=== PATIENT | female | born 1950 | race Caucasian/White ===

== ENCOUNTER → 2017-01-27 | Outpatient (CLI) | payer OTHER, BC ==
[~2017-01-27] MED LIST: ASCO10003 PO; ASPEC81 PO; B-COTAB18 PO; BETAPOW PO; BIOTPOW17 PO; CALC1TAB56 PO; COEN1CAP32 PO; CRAN1CAP15 PO; ESTR10TA PV; FLV1 PO; MAGN250T3 PO; MELA3TAB7 PO; MISCCAP52 PO; MISCCAP80 PO; OMEG10007 PO; VITA400C15 PO; [UNRECOGNIZED DRUG - OTHER] PO; [UNRECOGNIZED DRUG - OTHER] PO
== END | disposition home or self-care (01) ==
LOC: C.LABSPEC 16:26
PROVIDERS: ATTEND Internal Medicine
DX: Z00.00 Encounter for general adult medical examination without abnormal findings (principal); Z11.59 Encounter for screening for other viral diseases

== ENCOUNTER → 2017-06-16 | Outpatient (CLI) | payer OTHER, BC ==
[2017-06-16 16:20] LABS: FERRITIN 79.4 ng/ml (8.0-388.0); THYROID STIMULATING HORMONE 1.3 uIu/ml (0.300-4.500)
[2017-06-16 17:36] LABS: LYME DISEASE AB IGG NEG (NEG); LYME DISEASE AB IGM NEG (NEG)
== END | disposition home or self-care (01) ==
LOC: C.LAB 09:31
PROVIDERS: ATTEND Internal Medicine
DX: R53.83 Other fatigue (principal); Z86.2 Personal history of diseases of the blood and blood-forming organs and certain disorders involving the immune mechanism

== ENCOUNTER → 2018-01-05 | Outpatient (CLI) | payer OTHER, BC | END | disposition home or self-care (01) | LOC: C.MAMM 12:34 | PROVIDERS: ATTEND Internal Medicine | DX: Z85.3 Personal history of malignant neoplasm of breast (principal); Z78.0 Asymptomatic menopausal state; M85.88 Other specified disorders of bone density and structure, other site ==

== ENCOUNTER → 2018-07-13 | Outpatient (CLI) | payer OTHER, BC ==
--- NOTE | 2018-07-13 16:38 | DIAGNOSTIC IMAGING REPORT ---
CERVICAL SPINE 5 VIEWS CLINICAL HISTORY: neck pain. FINDINGS: AP, lateral, bilateral oblique, and odontoid views of the cervical spine are compared to study dated 07/14/2011. The skeletal structures are osteopenic. There is no radiographic evidence of fracture or malalignment. Vertebral body height is maintained at the cervical spine. Minimal anterolisthesis is seen at C4-C5. Alignment is otherwise maintained. There is straightening of the cervical lordosis with reversal centered at C4-C5. The spinal laminar line is maintained. The odontoid process and lateral masses appear intact as seen on the open-mouth views. The atlantodental articulation is maintained. The spinous processes appear intact. Small anterior osteophytes are seen in the mid to lower cervical region. There is advanced disc space narrowing with associated endplate sclerosis seen at C5-C6. Moderate disc space narrowing is seen at C4-C5 and C6-C7. A small posterior disc osteophyte complex at C5-C6 may contribute to acquired compromise of the central canal. Mild to moderate neural foraminal stenosis is suggested on the right at C5-C6 and C6-C7. No significant neural foraminal narrowing is suggested on the left on the oblique views. The prevertebral soft tissues are normal as imaged. The partially visualized apical lung parenchyma appears clear. Surgical clips project over the left upper chest. IMPRESSION: 1. No acute bony abnormality is seen involving the cervical spine. 2. Osteopenia and multilevel spondylosis as detailed above. This is greatest at C5-C6 and appears modestly progressed from the 2010 examination. Dictated: 07/13/2018 4:02 PM Transcribed: 07/13/2018 4:38 PM [email or web address] Electronically signed by: lAex Flores M.D. 07/13/2018 4:40 PM Dictated Date/Time: 07/13/2018 4:02 PM
== END | disposition home or self-care (01) ==
LOC: C.RAD1850 15:45
PROVIDERS: ATTEND Internal Medicine
DX: M43.6 Torticollis (principal); M85.88 Other specified disorders of bone density and structure, other site; M47.812 Spondylosis without myelopathy or radiculopathy, cervical region

== ENCOUNTER 2019-10-17 08:49 | Inpatient (IN) ==
--- NOTE | 2019-10-14 16:03 | History & Physical Report ---
Date of Service October 14, 2019 Assessment & Plan (1) Fracture of ankle, trimalleolar, right, closed: IMPRESSION: Right ankle trimalleolar fracture. PROCEDURE: Open reduction internal fixation of right ankle trimalleolar fracture. PLAN: The patient is scheduled to undergo this procedure at the [facility] as an inpatient with Dr. Lucio Davis on Thursday, October 17, 2019. Risks and complications of the procedure such as infection, bleeding, pain, scarring, nerve and blood vessel damage, weakness, wound problems, stiffness, incomplete relief of symptoms, tendon or ligament injury, heart attack, stroke, , infection, blood clots, embolism, malunion, nonunion, hardware failure and arthritis were explained to patient by Dr. Davis at her visit today. Informed consent to perform the procedure was obtained. The patient saw Dr. Mcgowan at the clinic upstairs today and will receive medical clearance from him. She is to return to his office after her visit with us today for a Tdap and for a CBC, complete metabolic panel, EKG and PT, INR studies. I provided the patient with orders for all of these tests as well as DME orders for a knee scooter and a wheelchair. She is to refrain from taking aspirin starting now as well as fish oil. I advised her that I will prescribe narcotic pain medication. We will have her increase her aspirin to twice daily for DVT prophylaxis along with the use of SADI stockings. She will be placed into a splint for 2 weeks and at her 2-week followup, I will transition her to a short leg cast. The patient was given a packet, advised to review it and to contact the hospital for her time of arrival on Thursday for her surgery. The patient verbalized understanding of all information provided during today's visit, thanked us for the care she has received and states if she has questions or concerns that should arise prior to her surgery date, she will contact the clinic. History of Present Illness Chief Complaint: Right ankle trimalleolar fracture Primary Care Provider: Anel Lind MD CHIEF COMPLAINT: Right ankle injury. HISTORY OF PRESENT ILLNESS: This 69-year-old female presents to the clinic for her new patient visit for an evaluation of a right ankle fracture that she sustained in [facility] this past Thursday. The patient states that she was init ially seen by an EMT in [facility], consequently took a flight from [facility] to [facility], and was seen at the emergency department in [place], [place] where she had a reduction of her displaced trimalleolar fracture of the right ankle. The patient states that the injury occurred when she slipped on a step. She states she has not been able to ambulate on the right lower extremity since the injury occurred. She has been elevating, icing and is currently in a posterior short leg splint. The patient states that the emergency department doctor in [place] advised her to follow up with an orthopedist at her soonest convenience because most likely this injury will require surgical fixation. PAST MEDICAL HISTORY: Breast cancer, colonic polyps, left-sided CVA, right lung nodule, recurrent urinary tract infections, right hemiparesis, actinic keratosis, history of blood clots. PAST SURGICAL HISTORY: Mammary prosthesis insertion, right mastopexy, lipectomy suction assisted mammary prosthesis insertion, shave biopsy of skin, fat grafting of the left breast, implantable port placement, latissimus dorsi flap with implant of the left breast, biopsy of the left chest wall, carpal tunnel release, fat grafting, removal of port, tattooing of the nipple. FAMILY HISTORY: Positive for breast cancer, hyperlipidemia, hypertension, prediabetes and skin cancer. ALLERGIES: THE PATIENT HAS MEDICATION ALLERGIES TO CODEINE, VICODIN, AND TAPE. CURRENT MEDICATIONS USED: Aspirin 81 mg tablet daily, B complex with B12 oral tablet daily, beta glucan on 500 mg tablet daily, biotin 10 mg tablet daily, glucosamine-chondroitin 1 tab twice daily, Citracal plus D3 tabs daily, CoQ10 400 mg tablet daily, cranberry 450 mg capsule daily, fish oil oral capsule 1000 mg daily, folic acid 1 mg oral tablet daily, magnesium oxide 250 mg capsule at bedtime, melatonin 20 mg tablet daily, probiotic intestinal 4 mg tablet daily, vitamin C 1000 mg daily, vitamin E 4000 international unit capsule daily. SOCIAL HISTORY: The patient consumes 1-2 glasses of wine per day. She is denies tobacco or illicit drug use. REVIEW OF SYSTEMS: A 14-point review of systems was performed and is unremarkable except for those things stated in the HPI as well as arthritis. DIAGNOSTIC IMAGING: Images obtained today show a nondisplaced distal fibular fracture reveals a posterior malleolar fracture. The patient husbands has x- rays done before the reduction that showed a right ankle fracture dislocation. IMPRESSION: Right ankle trimalleolar fracture. PROCEDURE: Open reduction internal fixation of right ankle trimalleolar fracture. PLAN: The patient is scheduled to undergo this procedure at the [facility] as an inpatient with Dr. Lucio Davis on Thursday, October 17, 2019. Risks and complications of the procedure such as infection, bleeding, pain, scarring, nerve and blood vessel damage, weakness, wound problems, stiffness, incomplete relief of symptoms, tendon or ligament injury, heart attack, stroke, , infection, blood clots, embolism, malunion, nonunion, hardware failure and arthritis were explained to patient by Dr. Davis at her visit today. Informed consent to perform the procedure was obtained. The patient saw Dr. Mcgowan at the clinic upstairs today and will receive medical clearance from him. She is to return to his office after her visit with us bertha leiva for a Tdap and for a CBC, complete metabolic panel, EKG and PT, INR studies. I provided the patient with orders for all of these tests as well as DME orders for a knee scooter and a wheelchair. She is to refrain from taking aspirin starting now as well as fish oil. I advised her that I will prescribe narcotic pain medication. We will have her increase her aspirin to twice daily for DVT prophylaxis along with the use of SADI stockings. She will be placed into a splint for 2 weeks and at her 2-week followup, I will transition her to a short leg cast. The patient was given a packet, advised to review it and to contact the hospital for her time of arrival on Thursday for her surgery. The patient verbalized understanding of all information provided during today's visit, thanked us for the care she has received and states if she has questions or concerns that should arise prior to her surgery date, she will contact the clinic. Allergies Allergy/AdvReac Type Severity Reaction Status Date / Time codeine Allergy Severe CAUSED Verified 04/21/19 09:21 PARALYSIS IN EXTREMETIES acetaminophen AdvReac Unknown SEVERE Verified 04/21/19 09:21 NAUSEA hydrocodone AdvReac Unknown SEVERE Verified 04/21/19 09:21 NAUSEA Past Med/Surg History Medical History Breast cancer (Chronic) Cervical pain (neck) (Chronic) History of CVA with residual deficit (Chronic) Lymph edema (Chronic) Surgical History (Updated 04/21/19 @ 11:54 by Jake Alatorre PA-C) History of mastectomy, total (Chronic) Social History Communication Ability: Effective Visual Impairment: No Limitations Hearing Ability: Normal Lead Cargo Mover Required: No Beliefs That Will Affect Care: None marital status: Current Living Situation: Spouse current occupational status: employed and 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 No open skin lesions or discharge. Eyes: Pupils are equal and reactive to light and accommodating. Extraocular movements are intact. Throat: Posterior pharynx is clear with absence of edema, erythema or exudate. Cardiovascular exam: The patient has a regular rate and rhythm with no murmurs or gallops appreciated. Lungs: Auscultation of lung headley reveals clear breath sounds throughout, no wheezing, rales or rhonchi. Abdomen is nonobese, nondistended, nontender with normoactive bowel sounds. Extremities: Right lower extremity is currently in a posterior short leg splint. The patient is able to slightly move her toes. She is able to depict light sensation to touch over the pads of her digits. She has tenderness to palpation over the anterior aspect of the lateral malleolus. She is able to reach terminal flexion and extension in her right knee. Neurologic exam: Cranial nerves 2-12 are intact. No motor or sensory deficit. Psychological/general exam: The patient is alert and oriented x3 with proper grooming and hygiene.
[~2019-10-17 08:49] MED LIST changes: -ASCO10003 PO; -ASPEC81 PO; -B-COTAB18 PO; -BETAPOW PO; -BIOTPOW17 PO; -CALC1TAB56 PO; +CEFAZOLIN 2000MG 2,000 MG/15 ML SYR IV SCH; -COEN1CAP32 PO; -CRAN1CAP15 PO; -ESTR10TA PV; -FLV1 PO; +LR 15ML/HR IV SCH; -MAGN250T3 PO; -MELA3TAB7 PO; -MISCCAP52 PO; -MISCCAP80 PO; -OMEG10007 PO; -VITA400C15 PO; -[UNRECOGNIZED DRUG - OTHER] PO; -[UNRECOGNIZED DRUG - OTHER] PO
[2019-10-17] MEDS ORDERED: DEXAMETHASONE SOD INJ 4 MG/ML VIAL ONE (10:15)
[2019-10-17] MEDS ORDERED: ONDANSETRON INJ 2 MG/ML 2 ML VIAL ONE (10:15)
[2019-10-17] MEDS ORDERED: PROPOFOL IV EMULSION 10 MG/ML 20 ML VIAL IV ONE (10:15)
[2019-10-17] MEDS ORDERED: fentaNYL citrate 100 MCG/2 ML VIAL ONE (10:15)
[2019-10-17] MEDS ORDERED: MIDAZOLAM HCL 1 MG/ML 2ML VIAL ONE (10:15)
[2019-10-17] MEDS ORDERED: LIDOCAINE HCL 2% 2 ML VIAL/AMP(20MG/ML) INFIL ONE (10:15)
--- NOTE | 2019-10-17 11:05 | History & Physical Bridge Note ---
Date of Service October 17, 2019 History & Physical Bridge Note I have examined the patient, reviewed the History & Physical and in the interval since the performance of the History & Physical I have noted the following changes of clinical significance: no changes noted
--- NOTE | 2019-10-17 11:10 | Anesthesiology Consultation ---
Date of Service October 17, 2019 Assessment & Plan Chart Review Chart Review: Acceptable Risk for Surgery and Patient NOT seen in Pre Admission Testing Consults Requested none ASA ASA2 Proposed Anesthesia Anesthesia Type: General Regional Regional Laterality: Right Site: Popliteal and Adductor Canal Risk / Benefits Reviewed With: PT / POA / Parent / Guardian, Accepts Plan and Informed Consent Obtained History Surgery Operation Date: 10/17/19 07:00 Proposed Procedures p Right Ankle Trimalleolar Fracture Open Reduction Internal Fixation - Lucio Davis MD Height/Weight Height: 5 ft 5 in Weight: 62.596 kg Allergies Allergy/AdvReac Type Severity Reaction Status Date / Time codeine Allergy Severe CAUSED Verified 10/17/19 09:23 PARALYSIS IN EXTREMETIES adhesive tape AdvReac Mild Rash Verified 10/17/19 09:23 hydrocodone AdvReac Unknown SEVERE Verified 10/17/19 09:23 NAUSEA Medications Home Medications Medication Instructions Recorded Confirmed Last Taken B.breve-L.acid-L.rham-S.thermo 1 tab PO DAILY 10/17/19 10/17/19 10/16/19 08:00 [Probiotic] ascorbic acid (vitamin C) [Vitamin 1,000 mg PO DAILY 10/17/19 10/17/19 10/16/19 08:00 C] aspirin [Aspirin Low Dose] 81 mg PO DAILY 10/17/19 10/17/19 10/14/19 08:00 biotin 10 mg PO DAILY 10/17/19 10/17/19 10/16/19 08:00 calcium phosphate-vitamin D3 3 tab PO BID 10/17/19 10/17/19 10/16/19 20:00 [Citracal + D3 (calcium phos)] coenzyme Q10 [CoQ-10] 400 mg PO DAILY 10/17/19 10/17/19 10/16/19 08:00 cranberry 450 mg PO DAILY 10/17/19 10/17/19 10/16/19 08:00 folic acid 1 mg PO DAILY 10/17/19 10/17/19 10/16/19 08:00 glucos sul 2DIm-fgo-jwbkw-C-Mn 1 cap PO BID 10/17/19 10/17/19 10/16/19 20:00 [Glucosamine Chondroitin] magnesium oxide 250 mg PO HS 10/17/19 10/17/19 10/16/19 20:00 melatonin 20 mg PO HS 10/17/19 10/17/19 10/16/19 20:00 naproxen sodium [Aleve] 220 mg PO Q12H PRN 10/17/19 10/17/19 10/16/19 21:00 omega 2-kzx-xkm-fish oil [Fish Oil] 1 cap PO DAILY 10/17/19 10/17/19 10/14/19 08:00 vitamin B complex 1 tab PO DAILY 10/17/19 10/17/19 10/16/19 08:00 vitamin E 4,000 unit PO DAILY 10/17/19 10/17/19 10/16/19 08:00 NPO Date Last Intake of Fluids: 10/16/19 Time Last Intake of Fluids: 22:00 Date Last Intake of Solids: 10/16/19 Time Last Intake of Solids: 21:00 Past Medical History Medical History Breast cancer (Chronic) Cervical pain (neck) (Chronic) History of CVA with residual deficit (Chronic) Lymph edema (Chronic) Exercise / Class Metabolic Activity II 4-5 Yardwork/Stairs/Walk up hill Past Surgical History Surgical History History of carpal tunnel surgery of left wrist (Acute) History of mastectomy, total (Chronic) Past Anesthesia History No Hx of Anesthesia Complications and No Family Hx of Anesthesia Complications History of PONV No Hx of PONV and No Hx of Motion Sickness Social History Smoking Status: Never smoker Do You Dip or Chew Tobacco: No Hx Alcohol Use: Yes Alcohol type: wine alcohol intake frequency: 0-2 drinks per day Hx Substance Use: No Physical Exam Vital Signs Last Vital Signs Temp 36.7 C 10/17/19 09:38 Pulse 70 10/17/19 09:38 Resp 20 10/17/19 09:38 BP 138/69 10/17/19 09:38 Pulse Ox 96 10/17/19 09:38 Constitutional not obese ENMT Mouth: no dentition abnormality Thyromental Distance: < 3.5 Finger Breadths Mallampati Class: II Neck normal visual inspection and trachea midline; neck extension not limited Respiratory normal respiratory effort Auscultation: lungs clear to auscultation bilaterally Cardiovascular Rate/Rhythm: regular rate and regular rhythm Heart Sounds: no murmur Vessels: no carotid bruit Musculoskeletal Spine: normal cervical ROM Neurologic moves all extremities (right side weakness ) Motor/Sensory: no sensory deficit Psychiatric Orientation: alert and oriented x 3 Testing Laboratory Results WBC: 5.8 Hc.9 Hct: 37.2 PLATELETS: 200 SODIUM: 144 POTASSIUM: 3.9 CHLORIDE: 108 CO2: 30 BUN: 19 CREATININE: 0.75 GLUCOSE:122 PT: 11.9 PTT: INR:0.9 UA: TYPE AND SCREEN: Electrocardiogram Date: 10/14/19 Findings: + NSR @ (at 69)
[2019-10-17] MEDS ORDERED: EPINEPHrine INJ 1 MG/ML AMP ONE (11:31)
[2019-10-17] MEDS ORDERED: BUPIVACAINE 0.5 % 5 MG/1 ML MPF 30ML VIAL ONE (11:31)
[2019-10-17] MEDS ORDERED: ROPIVACAINE 0.5% 5 MG/ML 30 ML VIAL ONE (12:04)
--- NOTE | 2019-10-17 14:22 | Post Operative Brief Note ---
Immediate Post Op Note v1 Date of Surgery October 17, 2019 Pre & Post Diagnosis Operation Date: 10/17/19 07:00 Pre-Op Diagnosis: Right Ankle Trimalleolar Fracture Post-Op Diagnosis: Right Ankle Trimalleolar Fracture I identified the patient and participated in the time-out.: Yes Procedure Operation Date: 10/17/19 07:00 Actual Procedures p Right Ankle Trimalleolar Fracture Open Reduction Internal Fixation(Right) - Lucio Davis MD Surgeon Lucio Davis MD Time Study Clerk DARLENE Winn PA-C Estimated Blood Loss 50 Findings Consistent with Post-Op Diagnosis Fluids 1200 cc Anesthesia Type General Regional Complications none Disposition Accompanied Patient To Recovery: No Disposition: Recovery Room
[2019-10-17] MEDS ORDERED: NALOXONE HCL 0.4 MG/1 ML VIAL/CARP IV PRN ×2 (14:28→14:46)
--- NOTE | 2019-10-17 14:28 | Operative Report ---
Post Operative Report Pre & Post Diagnosis Operation Date: 10/17/19 07:00 Pre-Op Diagnosis: Right Ankle Trimalleolar Fracture Post-Op Diagnosis: Right Ankle Trimalleolar Fracture I identified the patient and participated in the time-out.: Yes Procedure Operation Date: 10/17/19 07:00 Actual Procedures p Right Ankle Trimalleolar Fracture Open Reduction Internal Fixation(Right) - Lucio Davis MD Surgeon Lucio Davis MD Arterial Embalmer DARLENE Winn PA-C Estimated Blood Loss 50 Findings Consistent with Post-Op Diagnosis Specimens none Complications none Disposition Accompanied Patient To Recovery: Yes Disposition: Recovery Room Description of Procedure I was present during the entire case assisting with wound closure and dressing application. Please see Dr. Davis procedure note for specifics of the case. I attest to the content of the Intraoperative Record and any orders documented therein. Any exceptions are noted below.
[2019-10-17] MEDS ORDERED: TRAMADOL HCL 50 MG TABLET PO PRN (14:34)
[2019-10-17] MEDS ORDERED: ONDANSETRON INJ 2 MG/ML 2 ML VIAL IV PRN ×2 (14:34→14:46)
[2019-10-17] MEDS ORDERED: METOCLOPRAMIDE HCL INJ 5 MG/ML 2 ML VIAL IV PRN (14:34)
[2019-10-17] MEDS ORDERED: DiphenhydrAMINE HCL 50 MG/ML VIAL IV PRN (14:36)
[2019-10-17] MEDS ORDERED: ATROPINE SULFATE 0.1 MG/ML 10ML SYR IV PRN (14:46)
[2019-10-17] MEDS ORDERED: FLUMAZENIL 0.1 MG/1 ML 10 ML VIAL IV PRN (14:46)
[2019-10-17] MEDS ORDERED: LABETALOL HCL IV 5 MG/ML 20ML IV PRN (14:46)
[2019-10-17] MEDS ORDERED: PROMETHAZINE HCL 12.5 MG in SODIUM CHLORIDE 0.9% 50 ML IV PRN (14:46)
[2019-10-17] MEDS ORDERED: ePHEDrine sulfate 50 MG/ML AMP IV PRN (14:46)
[2019-10-17] MEDS ORDERED: fentaNYL citrate 100 MCG/2 ML VIAL IV PRN (14:46)
--- NOTE | 2019-10-17 14:56 | Fluoroscopy Report ---
FL ankle RT min 3V RTN CLINICAL HISTORY: RT TRIMALLEOLAR FX COMPARISON STUDY: 10/14/2019 FLUOROSCOPY TIME: 28 seconds. NUMBER OF FLUOROSCOPIC IMAGES: 4 FINDINGS: A lateral metallic plate with 6 screws fixate a distal fibular fracture. 2 cannulated screw s fixate a fracture the posterior malleolus of the distal tibia. The ankle mortise appears intact. IMPRESSION: Internally fixated fractures of the posterior malleolus and distal fibula. Electronically signed by: Anselmo Warren M.D. 10/17/2019 2:54 PM
--- NOTE | 2019-10-17 15:04 | XRay Report ---
XR ankle RT 2V CLINICAL HISTORY: post op ankle fracture COMPARISON: Right ankle radiographs October 14, 2019. FINDINGS: Distal right fibular plate and screws fixate the right fibular fracture. Alignment appears anatomic. Two screws within the posterior distal right tibia are also noted. The hardware is intact. Skin jt are noted. There is an overlying cast. There are no unexpected radiopaque foreign mela s. IMPRESSION: Expected findings following right ankle internal fixation. Electronically signed by: Murtaza Pichardo M.D. 10/17/2019 3:03 PM
--- NOTE | 2019-10-17 15:04 | Anesthesiology Progress Note ---
Date of Service October 17, 2019 Anesthesia Post Procedure Vital Signs Vital Signs: Temp Pulse Pulse Resp BP Pulse Ox 10/17/19 15:00 36.4 C L 72 14 126/62 100 10/17/19 14:50 69 14 127/68 100 10/17/19 14:40 75 14 128/69 100 10/17/19 14:30 36.8 C 88 14 129/71 99 10/17/19 09:38 36.7 C 70 20 138/69 96 10/17/19 09:29 36.7 C 70 20 138/69 96 Pain Intensity Right Ankle: Pain Intensity: 4 Transfer of Care Handoff Completed per policy Notes Mental Status: alert / awake / arousable Patient Amnestic to Procedure: Yes Nausea / Vomiting: adequately controlled Pain: adequately controlled Airway Patency, RR, SpO2: stable & adequate BP & HR: stable & adequate Hydration State: stable & adequate Anesthetic Complications: no major complications apparent
[2019-10-17] MEDS ORDERED: NAPROXEN 250 MG TAB PO PRN (15:53)
[2019-10-17] MEDS ORDERED: SODIUM CHLORIDE 0.9% 1000ML 1,000 ML IV SCH (16:00)
--- NOTE | 2019-10-17 17:08 | Operative Report ---
DATE OF OPERATION: 10/17/2019 PREOPERATIVE DIAGNOSIS: Right ankle trimalleolar ankle fracture. POSTOPERATIVE DIAGNOSIS: Right ankle trimalleolar ankle fracture. OPERATIONS PERFORMED: Open reduction internal fixation trimalleolar ankle fracture. SURGEON: Lucio Davis MD. MANUFACTURING TEAM MEMBER: Prachi Winn PA-C. ESTIMATED BLOOD LOSS: 50 mL. IV FLUIDS: 1200 mL crystalloid. SPECIMENS: None. COMPLICATIONS: None. IMPLANTS: 1. Synthes 6-hole 1/3rd tubular plate with five 3.5 mm cortical screws and one 3.5 mm locking screw. 2. Two 4-0 cannulated screws, both measuring 38 mm and one with a washer. INDICATIONS: The patient is a 69-year-old female who sustained an injury to her ankle while in [facility] on Thursday last week, 6 days ago. She flew home to [facility] where she was seen at an Emergency Room in [place]. She was diagnosed with a trimalleolar posterior ankle fracture dislocation. She was close reduced in [place] and is now home. She presented to my clinic on Thursday last week. X-rays demonstrated preservation of the reduction. However, this is an unstable pattern injury and there was displacement of the posterior malleolar fragment. Therefore, I recommended open reduction internal fixation in order to stabilize her joint and give her the best possible long-term outcome. After reviewing all the risks and benefits of surgery, alternatives to surgery and expected outcome, she elected to proceed. All questions were answered. Informed consent was signed. OPERATIVE FINDINGS: With the patient in the prone position, a posterior approach to the distal tibia and the posterior aspect of the fibula was made. The posterior malleolus fracture was reduced and stabilized with 2 cannulated Synthes 4.0 diameter screws. The fibula was stabilized with a 1/3rd tubular posterolateral antiglide plate. The medial malleolus fracture was closed reduced and therefore no fixation was required. DESCRIPTION OF THE OPERATION: The patient was identified in the preoperative holding area where her surgical site was marked. Her splint was removed and she had skin wrinkles. She was then given a popliteal and saphenous nerve blocks by Anesthesia and brought back to main Operating Room where general anesthesia was administered on the hospital bed. She was then carefully rolled into the prone position. All bony prominences were padded. Perioperative antibiotics were administered. She was prepped and draped in normal sterile fashion. Prior to incision, a multidisciplinary timeout was called. All in the room were in agreement. We began by exsanguinating the limb with an Esmarch bandage. Tourniquet was inflated to 250 mmHg. Total tourniquet time for the case was 79 minutes. A posterolateral approach to the ankle was made for a distance of approximately 10 cm and was centered fci between the Achilles and the posterior aspect of the fibula. We dissected down through subcutaneous tissues. The lesser saphenous vein was identified and small branches were coagulated with cautery. We then developed a full thickness fascial flaps. The fascia was then incised and the interval between the peroneal musculature and the FHL was developed. We followed this along the medial border of the fibula down on the posterior aspect of the tibia proximally and then continued this distally. Branches of the peroneal artery were coagulated using Bovie. The posterior malleolar fracture was then identified. The fracture site was opened up with a freer and the joint was lavaged using a bulb saline. We then were able to reduce the fracture using a ball spike under direct visualization. Two K wires were placed to hold the fragment in position. Fluoroscopy was brought in. Minor adjustments were made to our K wires and then a 4.0 long threaded cancellous screw was placed with a washer. A second screw was then placed. We did switch out first screw for one that was little bit shorter by 4 mm to optimize the screw length. Excellent fixation was obtained. Next, the interval between the peroneals and the posterior aspect of the fibula was identified and the peroneals were retracted medially to expose the posterior aspect of the fibula. The fracture site was identified and fracture hematoma was removed. The fracture was then reduced using a pointed tenaculum clamp. A 1/3rd tubular plate was then slid underneath the clamp and was secured with screws proximally and distally. Fluoroscopy was brought in to confirm the proper position of the plate as well as our reduction, which we were happy with. We then placed 4 more cortical screws within the plate which acted like a buttress as each of the screws were tightened down. In the most distal hole, I elected to place a locking screw since a fracture was quite distal to provide additional fixation of the distal fragment. The head of the screw also sits more within the plate so as to minimize irritation of the peroneal tendons. At this point, the fluoroscopy was brought back in and our final fluoroscopic images were obtained. This demonstrated that her medial malleolus fracture fragment continued to stay anatomically reduced. Therefore, no fixation was deemed necessary. We will plan on 6 weeks of postoperative casting to allow this fragment to heal in its anatomically located position. The wound was then irrigated with copious amounts of normal saline. The fascia was closed with 2-0 Vicryl sutures in running fashion. The deep dermis was closed with a running 3-0 Vicryl. The skin was closed with jt. Xeroform was placed over the wound followed by a well-padded posterior and U-slab plaster splint. Once the plaster was set, the patient was carefully rolled back into the supine position. She was extubated and transferred to the Recovery Room in stable condition. POSTOPERATIVE COURSE: The patient will be admitted overnight for pain control and monitoring. She will work with physical therapy tomorrow, nonweightbearing on the right lower extremity. She will be on Xarelto for DVT prophylaxis. I attest to the content of the Intraoperative Record and any orders documented therein. Any exception s are noted below.
[2019-10-17] MEDS: ACETAMINOPHEN 500 MG TAB PO PRN (20:14)
[2019-10-17] MEDS: CALCIUM 600MG + VIT D 400 IU TAB PO SCH (20:15)
[2019-10-17] MEDS ORDERED: NON-FORMULARY MEDICATION (Glucos Sul 2kcl-Msm-Chond-C-Mn [Glucosamine Chondroitin] 1 CAP) PO SCH (21:00)
[2019-10-17] MEDS ORDERED: NON-FORMULARY MEDICATION (Melatonin 20 MG) PO SCH (21:00)
[2019-10-17] MEDS ORDERED: MAGNESIUM OXIDE 400 MG TAB PO SCH (21:00)
--- NOTE | 2019-10-17 22:17 | Ultrasound Report ---
ULTRASOUND RIGHT LOWER EXTREMITY VENOUS CLINICAL HISTORY: Right leg pain and swelling. Ankle fracture. COMPARISON STUDY: Bilateral lower extremity venous ultrasound dated 11/08/2012. TECHNIQUE: Real-time, grayscale, and color Doppler sonography of the deep veins of the right lower ex tremity was performed from the inguinal crease to the calf. Compression and augmentation were utilize d. FINDINGS: There is no sonographic evidence of above knee deep venous thrombosis identified in the rig ht lower extremity. The common femoral, superficial femoral, and popliteal veins are patent and nick lly compressible. The greater saphenous vein and the profunda femoris vein at the junction with the c ommon femoral vein are clear. The calf vessels were not visualized due to a splint. IMPRESSION: There is no sonographic evidence of above knee deep venous thrombosis identified in the r ight lower extremity. Electronically signed by: Alex Flores M.D. 10/17/2019 10:16 PM
--- NOTE | 2019-10-18 08:13 | Anesthesiology Progress Note ---
Date of Service October 18, 2019 Anesthesia Post Procedure Vital Signs Vital Signs: Temp Pulse Pulse Pulse Pulse Resp BP 10/18/19 07:00 36.5 C 73 16 129/68 10/18/19 03:55 36.5 C 77 16 131/67 10/17/19 23:50 36.6 C 76 16 111/62 10/17/19 19:53 36.6 C 72 17 126/78 10/17/19 17:50 36.4 C L 77 17 126/69 10/17/19 16:54 36.4 C L 72 18 130/72 10/17/19 16:24 36.5 C 72 17 121/70 10/17/19 15:50 36.5 C 18 128/74 10/17/19 15:30 36.6 C 67 14 125/63 10/17/19 15:20 36.6 C 67 14 127/64 10/17/19 15:10 36.6 C 70 14 126/63 10/17/19 15:00 36.6 C 72 14 126/62 10/17/19 14:50 69 14 127/68 10/17/19 14:40 75 14 128/69 10/17/19 14:30 36.8 C 88 14 129/71 10/17/19 09:38 36.7 C 70 20 138/69 10/17/19 09:29 36.7 C 70 20 138/69 Pulse Ox 10/18/19 07:00 98 10/18/19 03:55 98 10/17/19 23:50 95 10/17/19 19:53 94 10/17/19 17:50 98 10/17/19 16:54 98 10/17/19 16:24 96 10/17/19 15:50 96 10/17/19 15:30 97 10/17/19 15:20 97 10/17/19 15:10 97 10/17/19 15:00 100 10/17/19 14:50 100 10/17/19 14:40 100 10/17/19 14:30 99 10/17/19 09:38 96 10/17/19 09:29 96 Pain Intensity Right Ankle: Pain Intensity: 4 Notes Mental Status: alert / awake / arousable and participated in evaluation Patient Amnestic to Procedure: Yes Nausea / Vomiting: adequately controlled Pain: adequately controlled Airway Patency, RR, SpO2: stable & adequate BP & HR: stable & adequate Hydration State: stable & adequate Anesthetic Complications: no major complications apparent and Pt Satisfied with anesthetic care
[2019-10-18] MEDS: CALCIUM 600MG + VIT D 400 IU TAB PO SCH (08:41)
[2019-10-18] MEDS ORDERED: VITAMIN B COMPLEX TAB PO SCH (09:00)
[2019-10-18] MEDS ORDERED: RIVAROXABAN 10 MG TABLET PO SCH (09:00)
[2019-10-18] MEDS ORDERED: FOLIC ACID 1 MG TAB PO SCH (09:00)
[2019-10-18] MEDS ORDERED: NON-FORMULARY MEDICATION (Biotin 10 MG) PO SCH (09:00)
[2019-10-18] MEDS ORDERED: NON-FORMULARY MEDICATION (Cranberry Fruit [Cranberry] 450 MG) PO SCH (09:00)
[2019-10-18] MEDS ORDERED: LACTOBACILLUS ACIDOPHILUS (FLORANEX) TAB PO SCH (09:00)
[2019-10-18] MEDS ORDERED: OMEGA-3 (PURIFIED FISH OIL) 1 GM CAP PO SCH (09:00)
[2019-10-18] MEDS ORDERED: RIVAROXABAN 20 MG TAB PO SCH (09:00)
[2019-10-18] MEDS ORDERED: ASCORBIC ACID 500 MG TAB PO SCH (09:00)
[2019-10-18] MEDS ORDERED: COENZYME Q10 400 MG PO SCH (09:00)
[2019-10-18] MEDS ORDERED: TOCOPHERYL, DL-ALPHA 400 UNITS CAP PO SCH (09:00)
[2019-10-18 09:14] LABS: BUN Creatinine Ratio 19.8 (10-20); Calcium 9.8 mg/dl (8.5-10.1); Creatinine Clr Calc Pharmacy 56.1 ml/min; Est GFR (African American) 81.6; Est GFR (Non-African American) 70.4; Potassium 4.3 mmol/L (3.5-5.1)
[2019-10-18 09:25] LABS: Mean Corpuscular Hgb Conc 32.5 g/dL (32-36)
[2019-10-18 09:28] LABS: Hematocrit (blood only) 35.4 % (37-47); Hemoglobin 11.5 g/dL (12.0-16.0); Mean Corpuscular Hemoglobin 31.5 pg (25-34); Platelet Count 157 K/uL (130-400); RDW Coefficient of Variation 13.7 % (11.5-14.5); RDW Standard Deviation 48.3 fL (36.4-46.3); Red Blood Count 3.65 M/uL (4.2-5.4); White Blood Count 6.72 K/uL (4.8-10.8)
[2019-10-18 09:29] LABS: Basophils # (auto) 0.01 K/uL (0-0.2); Basophils % (auto) 0.1 %; Eosinophils # (auto) 0.04 K/uL (0-0.5); Eosinophils % (auto) 0.6 %; Lymphocytes # (auto) 1.44 K/uL (1.2-3.4); Lymphocytes % (auto) 21.4 %; Monocytes # (auto) 0.58 K/uL (0.11-0.59); Monocytes % (auto) 8.6 %; Neutrophils # (auto) 4.65 K/uL (1.4-6.5); Neutrophils % (auto) 69.3 %; Platelet Estimate Normal (Normal)
--- NOTE | 2019-10-18 09:56 | Orthopedic Progress Note ---
Date of Service October 18, 2019 Assessment & Plan (1) Status post ORIF of fracture of ankle: Plan on discharge with home health Eval. Keep splint in place Non weight bearing on Right lower extremity with ambulatory assistance with walker/knee scooter/wheelchair Ice with EZ wrap DVT prophy with Xarelto and TEDs PO pain control with Extra Strength Tylenol and Tramadol F/u with Dr. Davis as scheduled on 10/28/19 With questions call Subjective This 69 yo F is day 1 s/p Right ankle trimalleolar fracture ORIF. She is doing very well. Her block has wore off but pain is well controlled with PO Tramadol. She did fairly well with PT this AM but was recommended a home health eval by case management and PT. At this time she denies CP, SOB, nausea, vomiting, fever, chills, sweats, lethargy or Numbness/tingling in her right foot/toes. Review of Systems Review of Systems: All systems reviewed & are unremarkable except as noted in HPI & below Physical Exam Physical Exam: Right LE: Toes mobile and able to depict light sensation to touch. Splint in place. Knee ROM from 0-130. NV intact Results & Data Vital Signs (Past 12 Hours) Vital Signs Temp Pulse Resp BP Pulse Ox 10/18/19 07:00 36.5 C 73 16 129/68 98 10/18/19 03:55 36.5 C 77 16 131/67 98 10/17/19 23:50 36.6 C 76 16 111/62 95 Laboratory Results 10/18/19 10/18/19 10/18/19 Range/Units 08:07 08:07 08:07 WBC 6.72 (4.8-10.8) K/uL RBC 3.65 L (4.2-5.4) M/uL Hgb 11.5 L (12.0-16.0) g/dL Hct 35.4 L (37-47) % MCV 97.0 (80-100) fL MCH 31.5 (25-34) pg MCHC 32.5 (32-36) g/dL RDW Std Deviation 48.3 H (36.4-46.3) fL RDW Coeff of Jolie 13.7 (11.5-14.5) % Plt Count 157 (130-400) K/uL MPV 11.0 H (7.4-10.4) fL Immature Gran % (Auto) 0.0 % Neut % (Auto) 69.3 % Lymph % (Auto) 21.4 % Cass % (Auto) 8.6 % Eos % (Auto) 0.6 % Baso % (Auto) 0.1 % Immature Gran # (Auto) 0.00 (0.00-0.02) K/uL Neut # (Auto) 4.65 (1.4-6.5) K/uL Lymph # (Auto) 1.44 (1.2-3.4) K/uL Cass # (Auto) 0.58 (0.11-0.59) K/uL Eos # (Auto) 0.04 (0-0.5) K/uL Baso # (Auto) 0.01 (0-0.2) K/uL Platelet Estimate Normal (Normal) Sodium 139 (136-145) mmol/L Potassium 4.3 (3.5-5.1) mmol/L Chloride 106 (98-107) mmol/L Carbon Dioxide 28 (21-32) mmol/L Anion Gap 5.0 (3-11) BUN 17 (7-18) mg/dl Creatinine 0.84 (0.6-1.2) mg/dl Est Cr Clr Drug Dosing 56.1 ml/min Est GFR ( Amer) 81.6 Est GFR (Non-Af Amer) 70.4 BUN/Creatinine Ratio 19.8 (10-20) Glucose 93 (70-99) mg/dl Calcium 9.8 (8.5-10.1) mg/dl Specimen Hemolysis Hepatitis C Ab Screen Pending
--- NOTE | 2019-10-18 09:57 | Discharge Summary ---
Date of Service October 18, 2019 Admission HPI Per Admitting Provider CHIEF COMPLAINT: Right ankle injury. HISTORY OF PRESENT ILLNESS: This 69-year-old female presents to the clinic for her new patient visit for an evaluation of a right ankle fracture that she sustained in [facility] this past Thursday. The patient states that she was initially seen by an EMT in [facility], consequently took a flight from [facility] to [facility], and was seen at the emergency department in [place], [place] where she had a reduction of her displaced trimalleolar fracture of the right ankle. The patient states that the injury occurred when she slipped on a step. She states she has not been able to ambulate on the right lower extremity since the injury occurred. She has been elevating, icing and is currently in a posterior short leg splint. The patient states that the emergency department d john in [place] advised her to follow up with an orthopedist at her soonest convenience because most likely this injury will require surgical fixation. PAST MEDICAL HISTORY: Breast cancer, colonic polyps, left-sided CVA, right lung nodule, recurrent urinary tract infections, right hemiparesis, actinic keratosis, history of blood clots. PAST SURGICAL HISTORY: Mammary prosthesis insertion, right mastopexy, lipectomy suction assisted mammary prosthesis insertion, shave biopsy of skin, fat grafting of the left breast, implantable port placement, latissimus dorsi flap with implant of the left breast, biopsy of the left chest wall, carpal tunnel release, fat grafting, removal of port, tattooing of the nipple. FAMILY HISTORY: Positive for breast cancer, hyperlipidemia, hypertension, prediabetes and skin cancer. ALLERGIES: THE PATIENT HAS MEDICATION ALLERGIES TO CODEINE, VICODIN, AND TAPE. CURRENT MEDICATIONS USED: Aspirin 81 mg tablet daily, B complex with B12 oral tablet daily, beta glucan on 500 mg tablet daily, biotin 10 mg tablet daily, glucosamine-chondroitin 1 tab twice daily, Citracal plus D3 tabs daily, CoQ10 400 mg tablet daily, cranberry 450 mg capsule daily, fish oil oral capsule 1000 mg daily, folic acid 1 mg oral tablet daily, magnesium oxide 250 mg capsule at bedtime, melatonin 20 mg tablet daily, probiotic intestinal 4 mg tablet daily, vitamin C 1000 mg daily, vitamin E 4000 international unit capsule daily. SOCIAL HISTORY: The patient consumes 1-2 glasses of wine per day. She is denies tobacco or illicit drug use. REVIEW OF SYSTEMS: A 14-point review of systems was performed and is unremarkable except for those things stated in the HPI as well as arthritis. Admission Exam Per Admitting Provider PHYSICAL EXAMINATION: Skin: The patient's skin is normal in appearance. No open skin lesions or discharge. Eyes: Pupils are equal and reactive to light and accommodating. Extraocular movements are intact. Throat: Posterior pharynx is clear with absence of edema, erythema or exudate. Cardiovascular exam: The patient has a regular rate and rhythm with no murmurs or gallops appreciated. Lungs: Auscultation of lung headley reveals clear breath sounds throughout, no wheezing, rales or rhonchi. Abdomen is nonobese, nondistended, nontender with normoactive bowel sounds. Extremities: Right lower extremity is currently in a posterior short leg splint. The patient is able to slightly move her toes. She is able to depict light sensation to touch over the pads of her digits. She has tenderness to palpation over the anterior aspect of the lateral malleolus. She is able to reach terminal flexion and extension in her right knee. Neurologic exam: Cranial nerves 2-12 are intact. No motor or sensory deficit. Psychological/general exam: The patient is alert and oriented x3 with proper grooming and hygiene. Principal Diagnosis Right ankle Trimalleolar Fracture Discharge Exam Right LE: Toes mobile and able to depict light sensation to touch. Splint in place. Knee ROM from 0-130. NV intact Discharge Data Allergies Allergy/AdvReac Type Severity Reaction Status Date / Time codeine Allergy Severe CAUSED Verified 10/17/19 09:23 PARALYSIS IN EXTREMETIES hydrocodone AdvReac Intermediate SEVERE Verified 10/17/19 11:18 NAUSEA adhesive tape AdvReac Mild Rash Verified 10/17/19 09:23 Consultations 10/17/19 14:29 Consult Case Management - Discharge Planning Routine Procedures Performed Operation Date: 10/17/19 07:00 Actual Procedures p Right Ankle Trimalleolar Fracture Open Reduction Internal Fixation(Right) - Lucio Davis MD Ordered Studies 10/17/19 11:10 US - OR guided needle placemen Stat 10/17/19 11:44 FL ankle RT min 3V RTN Routine FL fluoroscopy <1hr Routine 10/17/19 14:41 US venous doppler LE RT Routine Hospital Course (1) Status post ORIF of fracture of ankle: Patient did very well overnight. Block has wore off. Pain well controlled with PO meds. US negative for DVT. Discharge home on Xarelto for DVT prophylaxis and Tramadol for pain control. Did OK with PT but was recommended home health eval by PT and case management. purchased wheel chair and I wrote an Rx for a standard walker after speaking with PT provider. Plan on discharge with home health Eval. Keep splint in place Non weight bearing on Right lower extremity with ambulatory assistance with walker/knee scooter/wheelchair Ice with EZ wrap DVT prophy with Xarelto and TEDs PO pain control with Extra Strength Tylenol and Tramadol F/u with Dr. Davis as scheduled on 10/28/19 With questions call Total Time Total Time Spent Total Time Spent (In Minutes): 20 mins Total Time Includes: Examination of the Patient, Discharge Planning, Medication Reconciliation and Communication With Other Providers Discharge Plan Discharge Items Patient Disposition: Home - Home Health Services Reason For Visit: Right Ankle Trimalleolar Fracture Discharge Diagnosis: Right ankle trimalleolar fracture Activity: As commented below Lifting: None Bathing: Keep incision dry Bathing Comment: May shower tomorrow Sexual Activity: Wait until after follow-up appointment Exercise/Sports: Wait until after follow-up appointment Driving/Machine Use: No driving until cleared by dairy nutrition specialist Weightbearing: Right non-weightbearing Weightbearing Comment: with aide of walker/ knee scooter/ wheel chair Non-emergency contact: Primary Care Provider Call non-emergency contact if: you have any medication questions, your pain is not controlled, your temperature is above 101.5, your wound has increased drainage and your wound pain has increased Follow-up/Referrals: Anel Lind MD [Primary Care Provider] - Diet: Regular Addtl Attending Provider Instructions: Post-operative Instructions Dear Patient and Family/Friends, Before you are discharged from the hospital, it is important to know what to expect when you get home after surgery. To that end, we have created this sheet of discharge instructions which covers many commonly asked questions. Make sure you go through this sheet in its entirety with your nurse before you are discharged. Please note that we will go over the specifics of your surgery and recovery when you return for your first post-operative visit. Sincerely, Dr. Davis Medications 1. Xarelto 10 mg: take 1 tab daily for 21 days. A prescription will be sent to your pharmacy for this medication. While on Xarelto do not take you daily Aspirin. 2. Tramadol 50 mg: take 1-2 tabs every 4-6 hrs as needed for pain. A prescription will be sent to your pharmacy for 30 tablets. 3. Extra Strength Tylenol 500mg: take 2 tabs every 6 hrs as needed for pain. Please purchase. Pain Expect to be in a fair amount of pain after surgery. Remember, our goal is not to eliminate your pain, but to make it tolerable. It is a good idea to stay ahead of your pain by taking the medications you were prescribed once you get home. Typically, the pain starts improving 3-7 days after surgery. You should start weaning off the narcotic pain medication (oxycodone, hydrocodone, hydromorphone, morphine) as soon as your pain improves. Please call our office if your pain is not adequately controlled. Ice Ice your operative site at least 5 times a day for 15-30 minutes at a time. Make sure you have a thin cloth between the ice or cooling unit and your skin to prevent dee bite. This is especially important if you received a nerve block. Continue icing your operative site for the first 5-7 days after surgery, then as needed. Diet/Nausea/Vomiting Start by drinking clear liquids and eating crackers. If you can tolerate this, then you may resume your normal diet. If you feel nauseated or vomit, take Zofran/ondansetron (if prescribed). Please call our office if you have intractable nausea or vomiting, or, if after hours, you may go to the Emergency Room for help. Constipation Constipation is a common side effect of narcotic pain medication. If you have not had a bowel movement within 2 days after surgery, we recommend purchasing an over the counter laxative such as Milk of Magnesia, Dulcolax, or Miralax from a local pharmacy, and taking it as instructed. Call our clinic if any questions. Weight bearing and Range of Motion. Do not bear any weight through your operative extremity immediately after surgery. If you had upper extremity surgery, do not lift anything with that arm. If you are in a knee brace, keep it locked in place until your follow-up. We will discuss your weight bearing, range of motion, and lifting restrictions in detail at your first post-operative appointment. Continuous Passive Motion (CPM) Machine If you were prescribed a CPM machine, it will start after your first post- operative appointment, at which time we will give you instructions on the range of motion settings and duration of treatment Physical therapy You will be given a prescription for physical therapy or occupational therapy at your first post-operative appointment. Typically, patients start therapy within 1 week of surgery Wound care and showering We will inspect your wound at your first post-operative visit, and may do a dressing change at that time. Most patients will be in a water-proof dressing that is removed 14 days after surgery. It is normal to see some dried blood on the dressing. Do not remove your dressing, paper strips or sutures yourself unless you are given permission. Showering is allowed the day after surgery. Do not scrub or remove any dressings. The wound should not be submerged underwater (i.e. in a bathtub or pool) until 4 weeks after surgery SADI stockings If you were given white stockings, these are to be worn at all times except to shower (on both legs) for the first 2 weeks after surgery. Driving You may not drive while taking narcotic pain medication or while in a cast, splint, sling or brace. You, the patient, need to make the final determination about when you are safe to drive, however, the earliest you may consider driving after surgery is below: Hand/Wrist/Elbow Surgery: 3 days Shoulder Surgery: 2 weeks Hip,/Knee/Ankle Surgery: 4 weeks Fracture repair: 6 weeks Return to Work Your return to work depends on what surgery was done and what type of work you do. Please bring any paperwork your employer needs completed to your first post-operative visit. Also, bring a description of your job duties, as this helps us to understand what risks you may face at work. Travel Avoid long distance travel (greater than 1 hour) in airplanes and cars for the first 6 weeks after surgery. If you must travel, you need to have a Doppler ultrasound done before you travel to rule out a blood clot in your legs. Follow-up You should have a follow-up appointment already scheduled 1-2 days after surgery. If not, please contact our office to make this appointment before you leave the hospital. When to call the office It is normal to have swelling and bruising in the limb that was operated on. This will improve with time. It is also normal to have fevers for the first 2 days after surgery. Reasons you should call your doctor include: Uncontrolled pain; Nausea, vomiting, or constipation that does not improve with medication; Fevers over 101.5, chills, sweats; Drainage or bleeding from the wound; Foul odor; Spreading areas of redness; Any other concerns Pending Studies at Discharge: No Stand-Alone Forms: My [facility], Smoking Cessation Medications and DC Order Prescriptions: New Xarelto 10 mg tablet 10 mg PO DAILY 21 Days Qty: 21 RF: 0 tramadol 50 mg tablet See Rx Instructions .ROUTE .COMPLEX PRN (Reason: pain) Qty: 30 RF: 0 Continued biotin 10 mg Tablet 10 mg PO DAILY RF: 0 vitamin E 1,000 unit Capsule 4,000 unit PO DAILY RF: 0 omega [id number]-fish oil [Fish Oil] 1,000 mg (120 mg-180 mg) Capsule 1 cap PO DAILY RF: 0 vitamin B complex Tablet 1 tab PO DAILY RF: 0 Glucosamine Chondroitin 550-30-1 mg Capsule 1 cap PO BID RF: 0 calcium phosphate-vitamin D3 [Citracal + D3 (calcium phos)] 250 mg calcium- 500 unit Tablet,Chewable 3 tab PO BID RF: 0 cranberry 450 mg Tablet 450 mg PO DAILY RF: 0 folic acid 1 mg Tablet 1 mg PO DAILY RF: 0 magnesium oxide 250 mg magnesium Tablet 250 mg PO HS RF: 0 coenzyme Q10 [CoQ-10] 100 mg Capsule 400 mg PO DAILY RF: 0 melatonin 10 mg Tablet 20 mg PO HS RF: 0 ascorbic acid (vitamin C) [Vitamin C] 500 mg Tablet 1,000 mg PO DAILY RF: 0 Probiotic 3 billion cell Tablet,Chewable 1 tab PO DAILY RF: 0 Discontinued naproxen sodium [Aleve] 220 mg Tablet 220 mg PO Q12H PRN (Reason: Pain) RF: 0 aspirin [Aspirin Low Dose] 81 mg Tablet,Delayed Release (Dr/Ec) 81 mg PO DAILY RF: 0 Discharge Orders: Discharge Order (Routine); Ordered 10/18/19 Ordered By: Reji Winn Admission Data Admit Date/Time: 10/17/19 14:58 Attending Provider: Lucio Davis Admit Provider: Lucio Davis Primary Care Provider: Anel Lind
[2019-10-18] MEDS: ACETAMINOPHEN 500 MG TAB PO PRN (10:39)
--- NOTE | 2019-10-24 10:54 | Coding Query ---
CODING QUERY To promote full compliance with coding requirements relating to patient care, provider participation is requested in all cases of dairy grazer uncertainty. Please assist us with the question(s) below: Coding Question(s): The H&P documents a History of CVA with residual deficit and history of right hemiparesis. Please specify below. ( x) History of CVA with residual deficit of Right Hemiparesis ( ) History of CVA with unknown residual deficit but also has Right Hemiparesis not related to the CVA ( ) History of CVA with unknown residual deficit and NO Right Hemiparesis ( ) Other: Please Specify Physician's Response(s): Incomplete right hemiparesis. Thank you Melyssa Thompson Principal Diagnosis: "that condition established after study, to be chiefly responsible for occasioning the admission of the patient to the hospital for care." Co-Existing Principal Diagnosis: "when two or more diagnoses equally meet the criteria for principal diagnosis as determined by the circumstances of admission, diagnostic work up, and/or therapy provided, and the Alphabetic Index, Tabular List, or another coding guideline does not provide sequencing direction, any one of the diagnoses may be sequenced first." "When the physician has documented what appears to be a current diagnosis in the body of the record, but has not included the diagnosis in the final diagnostic statement, the physician should be asked whether the diagnosis should be added." (Source Coding Clinic 2 QTR90. p3-4) GUILLAUME
== END 2019-10-18 14:14 | disposition home health service (06) | DRG 493 ==
LOC: ASU 08:49 → 3E 14:58